=== PATIENT | female | born 1950 | race Caucasian/White ===

== ENCOUNTER 2019-04-13 19:27 | Observation (INO) ==
[~2019-04-13 19:27] MED LIST: ONDANSETRON HCL/PF 2 MG/ML VIAL IV ONE
[2019-04-13] MEDS ORDERED: ONDANSETRON HCL/PF 2 MG/ML VIAL IV ONE (20:20)
[2019-04-13] MEDS ORDERED: MORPHINE SULFATE 4 MG/ML SYRG IV ONE (20:20)
[2019-04-13] MEDS ORDERED: NORMAL SALINE 1,000 ML IV ONE (20:20)
--- NOTE | 2019-04-13 20:34 | ERNOTE ---
Medical Problem HPI - Narrative Date of Service: 04/13/19 - General Chief Complaint: Nausea/Vomiting Time Seen by Provider: 04/13/19 20:21 Source: patient, family - Immun/Allergies/Home Medications Immunizations: IMMUNIZATION HX Immunizations Up to Date Yes History of Influenza Vaccine No Hx Pneumococcal Vaccination No Allergies/Adverse Reactions: Allergies sulfamethoxazole [From Bactrim] Allergy (Mild, Verified 04/11/19 11:00) Rash trimethoprim [From Bactrim] Allergy (Mild, Verified 04/11/19 11:00) Rash Home Medications: HOME MEDICATIONS amlodipine 10 mg tablet 10 mg PO DAILY 04/10/19 [Last Taken 04/11/19] escitalopram 10 mg tablet 10 mg PO DAILY 04/10/19 [Last Taken 04/10/19] irbesartan 75 mg tablet 75 mg PO DAILY 04/10/19 [Last Taken 04/11/19] levothyroxine 100 mcg tablet 100 mcg PO DAILY 04/10/19 [Last Taken 04/11/19] pantoprazole 40 mg tablet,delayed release 40 mg PO DAILY 04/10/19 [Last Taken 04/10/19] - History of Present History Narrative: This is a 68-year-old female who comes to the emergency department with a full day of nausea and vomiting. The patient had a laparoscopic cholecystectomy performed here just over 48 hours ago. The surgery was uneventful and uncomplicated. The patient was given hydrocodone 5/325 tablets. She was told to take 2 pills every 6 hours for the first 48 hours and then after that as needed. She has been doing so. For the first 24 hours she was doing okay however over the last 24 hours she is developed persistent nausea and vomiting to the point where she cannot keep down the pain medicine and cannot keep down the antiemetic, Zofran, which she was prescribed. The patient denies any chest pain, shortness of breath, blood in her stool. No bowel movement for the last 48 hours. The patient denies any fever or chills or urinary symptoms. No coughing. No other complaints. Review of Systems - Review of Systems Constitutional: Present: malaise EYE: Present: no symptoms reported ENT: Present: no symptoms reported Respiratory: Present: no symptoms reported Cardiology: Present: no symptoms reported Gastrointestinal/Abdominal: Present: nausea, vomiting Genitourinary: Present: no symptoms reported Musculoskeletal: Present: no symptoms reported Skin: Present: no symptoms reported Neurological: Present: no symptoms reported Endocrine: Present: no symptoms reported Hematologic/Lymphatic: Present: no symptoms reported Psych: Present: no symptoms reported All Other Systems: All systems neg except as marked Medical History (Updated 04/11/19 @ 11:03 by Mai Monreal RN) Hx of cholelithiasis Onset Date: ~04/05/19 Wears dentures full upper, partial lower Depression Hypertension Hypothyroidism Macular degeneration Surgical History: Surgical History (Updated 04/13/19 @ 19:51 by Malia Arndt RN) Hx of cholecystectomy 04/11/19 History of tubal ligation Onset Date: 04/01/75 History of appendectomy Onset Date: 04/01/75 History of cataract surgery Onset Date: ~12/2018 History of excision of lesion Onset Date: ~01/2019 skin cancer on nose History of tonsillectomy Onset Date: ~1967 Family History: Family History (Updated 04/11/19 @ 11:02 by Mai Monreal RN) Father , age 71-cancer Cancer unknown type Mother , age 75-cancer Cancer unknown type Brother Alive and well Daughter Alive and well Son Hypertension Social History: (Last Reviewed 04/13/19 @ 19:51 by Malia Arndt RN) Social History: Marital status: household members: spouse number of children: 2 current occupation: homemaker Service: No Tobacco: Smoking Status: Never smoker Alcohol: alcohol intake: never Substance Use: substance use type: does not use Dietary Habits: caffeine: Yes Personal Safety: victim of physical abuse: No victim of emotional abuse: No Physical Exam - Physical Exam General Appearance: Present: wd/wn, alert, no apparent distress, other - Patient does not appear like she does not feel well but is not toxic Head Exam: Present: normal inspection, no evidence of injury Eye Exam: Normal inspection: bilateral, PERRL: bilateral, EOMI: bilateral Ears, Nose, Throat: Present: normal ENT inspection, normal pharynx, other - Membranes are moist Neck: Present: normal inspection, nontender Respiratory: Present: no respiratory distress, normal breath sounds, chest nontender, lungs clear, other - Patient is able to take deep breaths without any discomfort Cardiovascular/Chest: Present: regular rate, rhythm, other - 2/6 systolic murmur best heard over the right upper sternal border Gastrointestinal/Abdominal: Present: other - Patient's abdomen is soft, nondistended. The incision sites are clean dry and intact. There is no cellulitis. Bowel sounds are decreased but present. Back Exam: Present: normal inspection, normal range of motion, no vertebral tenderness Extremity Exam: Present: normal inspection, non-tender, normal range of motion, no edema Neurological Exam: Present: alert, oriented, normal mood/affect, no motor/sensory deficits Skin Exam: Present: other - Incisions are clean dry and intact. No cellulitic changes. Lymphatic Exam: Present: no adenopathy Progress - Results and Orders Patient's Lab Results:: I have reviewed the patient's lab results. - Vital Signs Patient's Vital Signs:: I have reviewed the patient's vital signs. Vital Signs: Vital Signs 04/13/19 19:47 Temperature 37.3 C Pulse Rate 87 Respiratory Rate 16 Blood Pressure 154/64 H O2 Sat by Pulse Oximetry 98 - Progress/Reassessment Chief Complaint: Nausea/Vomiting Plan - Plan Plan: The patient's lipase is normal. Labs are essentially normal. I suspect that her nausea and vomiting is coming from the pain medicine. She is taking 10 mg of hydrocodone every 4-6 hours. She probably got a hefty dose of antiemetics immediately after surgery. At this point she does not have excessive pain in her abdomen. I do not think a repeat scan is necessary. I have noticed that the patient's pulse ox is only 86 to 88% on room air. She has no history of lung disease. She has no discomfort when she is taking a deep breath. I wonder whether or not she is splinting. I am going to get her an incentive spirometer and see if we can get her to take some deep breaths and see if this has an impact on her pulse ox I spoke with Dr. Dumont she is excepting the patient as an admission. I encouraged the patient use incentive spirometer and she got her sats up to 93%. The patient feels miserable and wants to stay in the hospital. She says when she is forced to take as deep breaths it really starts to hurt. She is still having nausea. Will write for pain medicine, fluids, nausea medicine, spirometer Departure Clinical Impression: Hypoxia Intractable vomiting Qualifiers: Vomiting type: unspecified Nausea presence: with nausea Qualified Code(s): R11.2 - Nausea with vomiting, unspecified - Departure Disposition: Still a patient Condition: Stable
[2019-04-13 20:51] LABS: Hematocrit 37.7 % (37.0-47.0); Hemoglobin 12.6 gm/dL (12.5-16.0); Mean Cell Volume 91.7 fl (78-100); Mean Corpuscular Hemoglobin 30.7 pg (27-31); Mean Corpuscular Hgb Conc 33.4 g/dl (32-36); Mean Platelet Volume 11.1 fl (8-12.5); Neutrophil # 9.1 K/mm3 (1.3-6.0); Neutrophil % 79.3 % (42-75.0); Platelet Count 170 K/mm3 (150-450); Red Blood Count 4.11 M/mm3 (4.2-5.4); Red Cell Distribution Width 13.8 % (11.5-14.0); White Blood Count 11.5 K/mm3 (4.0-10.5)
[2019-04-13 21:03] LABS: Albumin * 2.8 gm/dl (3.4-5.0); Anion Gap 12.2 mmol/L (6.8-13.8); BUN/Creatinine Ratio 18.9 (9.0-21.6); Bilirubin, Total 0.5 mg/dL (0.0-1.1); Ca. Corrected For Albumin 9.6 mg/dL (8.4-10.2); Carbon Dioxide 33.1 mmol/L (24-32.6); Potassium 3.3 mmol/L (3.4-4.6); Total Protein 6.6 gm/dL (6.2-8.2)
[2019-04-13] MEDS ORDERED: MORPHINE SULFATE 4 MG/ML SYRG IV PRN (23:23)
[2019-04-14] MEDS: NORMAL SALINE 1,000 ML IV PRN ×3 (00:09→18:07)
[2019-04-14] MEDS: ONDANSETRON HCL/PF 2 MG/ML VIAL IV PRN ×2 (00:12→06:52)
[2019-04-14] MEDS ORDERED: ONDANSETRON HCL/PF 2 MG/ML VIAL IV PRN (08:41)
[2019-04-14] MEDS ORDERED: PROMETHAZINE HCL 25 MG SUPP.RECT RC PRN (09:20)
[2019-04-14] MEDS ORDERED: MAG HYDROX/ALUMINUM HYD/SIMETH 30 ML UDC PO ONE (09:21)
[2019-04-14] MEDS ORDERED: LIDOCAINE HCL 20 ML UDC PO ONE (09:21)
[2019-04-14] MEDS ORDERED: SUCRALFATE 1 G/10 ML UDC PO ONE (09:21)
[2019-04-14] MEDS ORDERED: METOCLOPRAMIDE HCL 5 MG/ML VIAL IV PRN (09:21)
[2019-04-14] MEDS ORDERED: NORMAL SALINE 1,000 ML IV ONE (09:22)
[2019-04-14] MEDS ORDERED: ACETAMINOPHEN 500 MG TABLET PO PRN (09:32)
[2019-04-14] MEDS ORDERED: IBUPROFEN 600 MG TABLET PO PRN (09:33)
[2019-04-14] MEDS ORDERED: KETOROLAC TROMETHAMINE 15 MG/ML VIAL IV PRN (09:33)
--- NOTE | 2019-04-14 09:36 | HP ---
Chief Complaint - Chief Complaint Date of Service: 04/14/19 Time of Service: 09:35 Chief Complaint: n/v, hypoxia History of Present Illness: Whitley is a pleasant 68 yo female who underwent a subtotal cholecystectomy on . Postoperatively she was taking hydrocodone every 6 hours regardless of pain. She developed significant nausea and vomiting. She went to the ER and was also found to be hypoxic. This morning her hypoxia has improved with use of the IS. However, she is still quite nauseated. Medical History (Updated 04/14/19 @ 09:36 by Shena Dumont DO) Hx of cholelithiasis Onset Date: ~04/05/19 Wears dentures full upper, partial lower Depression Hypertension Hypothyroidism Macular degeneration Surgical History: Surgical History (Updated 04/14/19 @ 09:36 by Shena Dumont DO) History of tubal ligation Onset Date: 04/01/75 Hx of cholecystectomy 04/11/19 History of appendectomy Onset Date: 04/01/75 History of cataract surgery Onset Date: ~12/2018 History of excision of lesion Onset Date: ~01/2019 skin cancer on nose History of tonsillectomy Onset Date: ~1967 Family History: Family History (Last Updated 04/14/19 @ 00:36 by Clari Angela RN) Father , age 71-cancer Cancer unknown type Mother , age 75-cancer Cancer unknown type Brother Alive and well Daughter Alive and well Son Hypertension Alive and well Social History: (Last Reviewed 04/14/19 @ 00:37 by Clari Angela RN) Social History: Marital status: household members: spouse number of children: 2 current occupation: homemaker Service: No Tobacco: Smoking Status: Never smoker Alcohol: alcohol intake: never Substance Use: substance use type: does not use Dietary Habits: caffeine: Yes Personal Safety: victim of physical abuse: No victim of emotional abuse: No Review Of Systems (GEN) - Review of Systems Generalized/Overall Review: Present: Weakness EENTM: Present: No Symptoms Reported Respiratory: Present: No Symptoms Reported Cardiac: Present: No Symptoms Reported Abdominal: Present: Nausea, Vomiting, Abdominal Pain Genitourinary: Present: No Symptoms Reported Musculoskeletal: Present: No Symptoms Reported Neurological: Present: No Symptoms Reported Skin: Present: No Symptoms Reported Endocrine: Present: No Symptoms Reported Immunizations: IMMUNIZATION HX Immunizations Up to Date Yes History of Influenza Vaccine No Hx Pneumococcal Vaccination No Allergies/Adverse Reactions: Allergies Allergy/AdvReac Type Severity Reaction Status Date / Time sulfamethoxazole Allergy Mild Rash Verified 04/14/19 09:04 [From Bactrim] trimethoprim [From Bactrim] Allergy Mild Rash Verified 04/14/19 09:04 Home Medications: HOME MEDICATIONS amlodipine 10 mg tablet 10 mg PO DAILY 04/10/19 [Last Taken 04/13/19] escitalopram 10 mg tablet 10 mg PO DAILY 04/10/19 [Last Taken 04/13/19] irbesartan 75 mg tablet 75 mg PO DAILY 04/10/19 [Last Taken 04/13/19] levothyroxine 100 mcg tablet 100 mcg PO DAILY 04/10/19 [Last Taken 04/13/19] Exam - Exam Vital Signs: Vital Signs - Last Taken Temp 37.5 C 04/14/19 06:55 Pulse 89 04/14/19 06:55 Resp 12 04/14/19 06:55 BP 188/80 H 04/14/19 06:55 Pulse Ox 94 04/14/19 06:55 Constitutional: Present: Alert, Oriented x3, Cooperative ENT Exam: Present: hearing grossly normal Neck: Present: full range of motion Breasts: Present: Exam deferred Respiratory: Present: lungs clear, normal breath sounds Cardiovascular/Chest: Present: regular rate, rhythm Abdomen: Present: Normal bowel sounds, soft, other - I- C/D/I /Rectal: Present: Exam deferred Extremity: Present: normal range of motion Skin Exam: Present: normal color Neurologic: Present: ota II-XII nml as tested Appearance: Present: appropriate appearance Eye contact: Present: cooperative, good eye contact Thoughts: Present: normal thought pattern Diagnostic Studies: Abnormal Lab Results 04/13/19 04/13/19 Range/Units 20:49 20:49 WBC 11.5 H (4.0-10.5) K/mm3 RBC 4.11 L (4.2-5.4) M/mm3 Immature Gran % (Auto) 1.50 H (0.001-0.429) % Immature Gran # (Auto) 0.17 H (0.000-0.0310) K/mm3 Neutrophils % 79.3 H (42-75.0) % Lymphocytes % 7.8 L (20-51) % Monocytes % 10.4 H (0.0-9) % Neutrophils # 9.1 H (1.3-6.0) K/mm3 Lymphocytes # 0.89 L (1.5-3.5) k/mm3 Monocytes # 1.2 H (0.0-1.0) k/mm3 Sodium 143 H (132-142) mmol/L Plasma Sodium 144 H (130-142) mmol/L Potassium 3.3 L (3.4-4.6) mmol/L Carbon Dioxide 33.1 H (24-32.6) mmol/L Random Glucose 159 H (70-110) mg/dL AST 53 H (0-48) U/L ALT 81 H (19-67) U/L Albumin 2.8 L (3.4-5.0) gm/dl Laboratory Results WBC 11.5 K/mm3 (4.0-10.5) H 04/13/19 20:49 RBC 4.11 M/mm3 (4.2-5.4) L 04/13/19 20:49 Hgb 12.6 gm/dL (12.5-16.0) 04/13/19 20:49 Hct 37.7 % (37.0-47.0) 04/13/19 20:49 MCV 91.7 fl (78-100) 04/13/19 20:49 MCH 30.7 pg (27-31) 04/13/19 20:49 MCHC 33.4 g/dl (32-36) 04/13/19 20:49 RDW 13.8 % (11.5-14.0) 04/13/19 20:49 Plt Count 170 K/mm3 (150-450) 04/13/19 20:49 MPV 11.1 fl (8-12.5) 04/13/19 20:49 Immature Gran % (Auto) 1.50 % (0.001-0.429) H 04/13/19 20:49 Immature Gran # (Auto) 0.17 K/mm3 (0.000-0.0310) H 04/13/19 20:49 79.3 % (42-75.0) H 04/13/19 20:49 7.8 % (20-51) L 04/13/19 20:49 10.4 % (0.0-9) H 04/13/19 20:49 0.7 % (0.0-3.0) 04/13/19 20:49 0.3 % (0.0-1.0) 04/13/19 20:49 Nucleated RBC % 0.0 k/mm3 (0-1) 04/13/19 20:49 9.1 K/mm3 (1.3-6.0) H 04/13/19 20:49 0.89 k/mm3 (1.5-3.5) L 04/13/19 20:49 1.2 k/mm3 (0.0-1.0) H 04/13/19 20:49 0.1 k/mm3 (0.0-0.7) 04/13/19 20:49 Absolute Basophils 0.0 k/mm3 (0.0-0.1) 04/13/19 20:49 Sodium 143 mmol/L (132-142) H 04/13/19 20:49 144 mmol/L (130-142) H 04/13/19 20:49 Potassium 3.3 mmol/L (3.4-4.6) L 04/13/19 20:49 Chloride 101 mmol/L (97-106) 04/13/19 20:49 Carbon Dioxide 33.1 mmol/L (24-32.6) H 04/13/19 20:49 12.2 mmol/L (6.8-13.8) 04/13/19 20:49 BUN 10 mg/dL (3-23) 04/13/19 20:49 0.53 mg/dL (0.4-1.4) 04/13/19 20:49 Est GFR (Non-Af Amer) 121 mL/min (60-130) 04/13/19 20:49 18.9 (9.0-21.6) 04/13/19 20:49 159 mg/dL (70-110) H 04/13/19 20:49 Calcium 9.0 mg/dL (7.9-10.9) 04/13/19 20:49 Calcium Adj for Albumin 9.6 mg/dL (8.4-10.2) 04/13/19 20:49 0.5 mg/dL (0.0-1.1) 04/13/19 20:49 AST 53 U/L (0-48) H 04/13/19 20:49 ALT 81 U/L (19-67) H 04/13/19 20:49 166 U/L (50-170) 04/13/19 20:49 6.6 gm/dL (6.2-8.2) 04/13/19 20:49 2.8 gm/dl (3.4-5.0) L 04/13/19 20:49 120 U/L (73-393) 04/13/19 20:49 Assessment/Plan - Narrative Narrative: GI cocktail reglan phenergan protonix tylenol/ advil tylenol #3 severe pain IVF bolus - Assessment/Plan (1) Status post laparoscopic cholecystectomy Problem: Acute (2) Intractable vomiting Problem: Acute Qualifiers: Vomiting type: unspecified Nausea presence: with nausea Qualified Code(s): R11.2 - Nausea with vomiting, unspecified (3) Hypoxia Problem: Acute
[2019-04-14] MEDS ORDERED: POTASSIUM CHLORIDE IN WATER 100 ML IV ONE (09:37)
[2019-04-14] MEDS: PANTOPRAZOLE SODIUM 40 MG in NORMAL SALINE 100 ML IV SCH (10:19)
[2019-04-14] MEDS: ENOXAPARIN SODIUM 40 MG/0.4 ML SYRG SC SCH (10:42)
[2019-04-14] MEDS ORDERED: amLODIPine BESYLATE 5 MG TABLET ONE (19:32)
[2019-04-14] MEDS: amLODIPine BESYLATE 10 MG TABLET PO SCH (19:36)
[2019-04-14] MEDS ORDERED: LOSARTAN POTASSIUM 50 MG TABLET ONE (21:07)
[2019-04-14] MEDS: LOSARTAN POTASSIUM 50 MG TABLET PO SCH (21:12)
[2019-04-15] MEDS: NORMAL SALINE 1,000 ML IV PRN ×2 (02:00→10:29)
[2019-04-15 06:10] LABS: Mean Cell Volume 90.5 fl (78-100); Mean Corpuscular Hemoglobin 30.2 pg (27-31); Mean Corpuscular Hgb Conc 33.3 g/dl (32-36); Mean Platelet Volume 11.4 fl (8-12.5); Neutrophil # 8.9 K/mm3 (1.3-6.0); Neutrophil % 74.7 % (42-75.0); Platelet Count 203 K/mm3 (150-450); Red Blood Count 4.31 M/mm3 (4.2-5.4); Red Cell Distribution Width 13.4 % (11.5-14.0); White Blood Count 11.9 K/mm3 (4.0-10.5)
[2019-04-15 06:33] LABS: Albumin * 2.4 gm/dl (3.4-5.0); Anion Gap 11.3 mmol/L (6.8-13.8); BUN/Creatinine Ratio 11.9 (9.0-21.6); Bilirubin, Total 0.5 mg/dL (0.0-1.1); Ca. Corrected For Albumin 9.4 mg/dL (8.4-10.2); Calcium * 8.4 mg/dL (7.9-10.9); Carbon Dioxide 29.5 mmol/L (24-32.6); Magnesium 1.9 mg/dL (1.2-2.8); Potassium 2.8 mmol/L (3.4-4.6); Total Protein 6.1 gm/dL (6.2-8.2)
[2019-04-15] MEDS ORDERED: LEVOTHYROXINE SODIUM 100 MCG TABLET PO SCH (07:00)
[2019-04-15] MEDS: amLODIPine BESYLATE 10 MG TABLET PO SCH (08:46)
[2019-04-15] MEDS: LOSARTAN POTASSIUM 50 MG TABLET PO SCH (08:46)
[2019-04-15] MEDS: ENOXAPARIN SODIUM 40 MG/0.4 ML SYRG SC SCH (08:48)
[2019-04-15] MEDS: PANTOPRAZOLE SODIUM 40 MG in NORMAL SALINE 100 ML IV SCH (08:49)
--- NOTE | 2019-04-15 10:05 | DS ---
(1) Status post laparoscopic cholecystectomy Problem: Acute (2) Intractable vomiting Problem: Resolved Qualifiers: Vomiting type: unspecified Nausea presence: with nausea Qualified Code(s): R11.2 - Nausea with vomiting, unspecified (3) Hypoxia Problem: Resolved Date of Discharge:: 04/15/19 Description of Stay: Whitley was admitted Monday night for hypoxia and intractable nausea vomiting. Since then her hypoxia has resolved. She now feels well enough to discharge. Procedures Performed: none Results and Findings: Lab Pending Results 04/13/19 20:49: WBC 11.5 H, RBC 4.11 L, Hgb 12.6, Hct 37.7, MCV 91.7, MCH 30.7, MCHC 33.4, RDW 13.8, Plt Count 170, MPV 11.1, Immature Gran % (Auto) 1.50 H, Immature Gran # (Auto) 0.17 H, Neutrophils % 79.3 H, Lymphocytes % 7.8 L, Monocytes % 10.4 H, Eosinophils % 0.7, Basophils % 0.3, Nucleated RBC % 0.0, Neutrophils # 9.1 H, Lymphocytes # 0.89 L, Monocytes # 1.2 H, Eosinophils # 0.1, Absolute Basophils 0.0 04/13/19 20:49: Sodium 143 H, Plasma Sodium 144 H, Potassium 3.3 L, Chloride 101, Carbon Dioxide 33.1 H, Anion Gap 12.2, BUN 10, Creatinine 0.53, Est GFR (Non-Af Amer) 121, BUN/Creatinine Ratio 18.9, Random Glucose 159 H, Calcium 9.0, Calcium Adj for Albumin 9.6, Total Bilirubin 0.5, AST 53 H, ALT 81 H, Alkaline Phosphatase 166, Total Protein 6.6, Albumin 2.8 L, Lipase 120 04/15/19 05:38: WBC 11.9 H, RBC 4.31, Hgb 13.0, Hct 39.0, MCV 90.5, MCH 30.2, MCHC 33.3, RDW 13.4, Plt Count 203, MPV 11.4, Immature Gran % (Auto) 1.60 H, Immature Gran # (Auto) 0.19 H, Neutrophils % 74.7, Lymphocytes % 12.7 L, Monocytes % 9.9 H, Eosinophils % 0.7, Basophils % 0.4, Nucleated RBC % 0.0, Neutrophils # 8.9 H, Lymphocytes # 1.51, Monocytes # 1.2 H, Eosinophils # 0.1, Absolute Basophils 0.1 04/15/19 05:38: Sodium 141, Plasma Sodium 141, Potassium 2.8 L, Chloride 103, Carbon Dioxide 29.5, Anion Gap 11.3, BUN 5, Creatinine 0.42, Est GFR (Non-Af Amer) 159 H D, BUN/Creatinine Ratio 11.9, Random Glucose 128 H, Calcium 8.4, Ca lcium Adj for Albumin 9.4, Magnesium 1.9, Total Bilirubin 0.5, AST 56 H, ALT 92 H, Alkaline Phosphatase 244 H, Total Protein 6.1 L, Albumin 2.4 L Discharge Location: Home Disposition: Home self-care Condition: Stable Discharge Activity: Activity as tolerated Discharge Diet: General/regular food Referrals: Shena Dumont DO [Primary Care Provider] - Prescriptions (Any new or edited meds): Isradipine 10 mg PO DAILY #30 cap Acetaminophen With Codeine [Tylenol with Codeine Elixir] 5 ml PO Q4H PRN #30 udc PRN Reason: Severe Pain (Pain Scale 7-10) Complete Home Medications List: Complete Home Medication List: amlodipine 10 mg tablet 10 mg PO DAILY 04/10/19 escitalopram 10 mg tablet 10 mg PO DAILY 04/10/19 irbesartan 75 mg tablet 75 mg PO DAILY 04/10/19 levothyroxine 100 mcg tablet 100 mcg PO DAILY 04/10/19 Acetaminophen With Codeine [Tylenol with Codeine Elixir] 5 ml PO Q4H PRN #30 udc 04/15/19 Acetaminophen [Tylenol] 1,000 mg PO Q6H PRN tablet 04/15/19 Ibuprofen [Motrin] 600 mg PO Q6H PRN tablet 04/15/19 Isradipine 10 mg PO DAILY #30 cap 04/15/19
--- NOTE | 2019-04-15 10:07 | PN ---
Subjective - Date and Time Seen Date: 04/15/19 Time: 10:06 Subjective Narrative: Feeling much better today. Nausea has resolved. Hypoxia is also resolved. Objective - Review of Systems Generalized/Overall Review: Reports: No Symptoms Reported EENTM: Reports: No Symptoms Reported Respiratory: Reports: No Symptoms Reported Cardiac: Reports: No Symptoms Reported Abdominal: Reports: Abdominal Pain Genitourinary Symptoms: Reports: No Symptoms Reported Musculoskeletal Complaints: Reports: No Symptoms Reported Neurological: Reports: No Symptoms Reported Skin: Reports: No Symptoms Reported Endocrine: Reports: No Symptoms Reported - Vitals Vitals: Last Vital Signs Temp 37.2 C 04/15/19 07:00 Pulse 88 04/15/19 08:46 Resp 18 04/15/19 07:00 BP 166/71 H 04/15/19 08:46 Pulse Ox 93 04/15/19 07:00 - Abnormal Lab Findings Abnormal Lab Findings: Abnormal Lab Results 04/15/19 04/15/19 Range/Units 05:38 05:38 WBC 11.9 H (4.0-10.5) K/mm3 Immature Gran % (Auto) 1.60 H (0.001-0.429) % Immature Gran # (Auto) 0.19 H (0.000-0.0310) K/mm3 Lymphocytes % 12.7 L (20-51) % Monocytes % 9.9 H (0.0-9) % Neutrophils # 8.9 H (1.3-6.0) K/mm3 Monocytes # 1.2 H (0.0-1.0) k/mm3 Potassium 2.8 L (3.4-4.6) mmol/L Est GFR (Non-Af Amer) 159 H D (60-130) mL/min Random Glucose 128 H (70-110) mg/dL AST 56 H (0-48) U/L ALT 92 H (19-67) U/L Alkaline Phosphatase 244 H (50-170) U/L Total Protein 6.1 L (6.2-8.2) gm/dL Albumin 2.4 L (3.4-5.0) gm/dl - Exam Constitutional: Present: Alert, Oriented x3, Cooperative ENT Exam: Present: hearing grossly normal Neck: Present: trachea midline Breasts: Present: Exam deferred Respiratory: Present: lungs clear Cardiovascular/Chest: Present: regular rate, rhythm Abdomen: Present: Normal bowel sounds, soft /Rectal: Present: Exam deferred Extremity: Present: normal range of motion Skin Exam: Present: normal color Neurologic: Present: billet straightener II-XII nml as tested Appearance: Present: appropriate appearance Eye contact: Present: cooperative, good eye contact Thoughts: Present: normal thought pattern Assessment/Plan Plan Narrative: Discharge home later today after she receives potassium. - Problems/Diagnosis (1) Status post laparoscopic cholecystectomy Problem: Acute (2) Intractable vomiting Problem: Resolved Qualifiers: Vomiting type: unspecified Nausea presence: with nausea Qualified Code(s): R11.2 - Nausea with vomiting, unspecified (3) Hypoxia Problem: Resolved
[2019-04-15] MEDS: POTASSIUM CHLORIDE IN WATER 100 ML IV SCH ×4 (10:30→15:31)
[2019-04-15 17:11] VITALS: BP 176/78
== END 2019-04-15 17:30 | disposition home or self-care (01) ==
LOC: MS 19:27 → ER 19:27 → MS 23:50
PROVIDERS: ADMIT Surgery; ATTEND Surgery
CPT/HCPCS: 36415; 80053; 83690; 83735; 85025; 96365; 96366; 96367; 96372; 96375; 99285; G0378; J2405